=== PATIENT | female | born 1970 | race Caucasian/White ===

== ENCOUNTER 2022-07-09 07:32 | Day surgery (SDC) | payer MEDICAID ==
[~2022-07-09] VITALS: Ht 165.1 cm; Wt 71.7 kg
[2022-07-09] MEDS ORDERED: fentaNYL citrate 0.05 MG/ML VIAL ONE (08:17)
[2022-07-09] MEDS ORDERED: diphenhydrAMINE 50 MG/ML VIAL ONE (08:17)
[2022-07-09] MEDS ORDERED: MIDAZOLAM 5 MG/5 ML VIAL ONE (08:18)
[2022-07-09] MEDS: MIDAZOLAM 5 MG/5 ML VIAL IV ONE (08:31)
[2022-07-09] MEDS: fentaNYL citrate 0.05 MG/ML VIAL IVP ONE (08:32)
[2022-07-09] MEDS: LIDOCAINE 2% 100 MG/5 ML UJET TP ONE (08:35)
== END 2022-07-09 09:40 | disposition home or self-care (01) ==
LOC: MDS 07:32 → MMU 07:38 → MDS 09:40
PROVIDERS: ATTEND Internal Medicine Gastroenterology
DX: Z12.11 Encounter for screening for malignant neoplasm of colon (principal); I10 Essential (primary) hypertension; Z79.899 Other long term (current) drug therapy
CPT/HCPCS: J1200; J2250; J3010